=== PATIENT | female | born 1945 | race Caucasian/White ===

== ENCOUNTER 2017-06-28 10:42 | Day surgery (SDC) | payer MEDICARE, BC ==
[2017-06-27 10:04] LABS: BASOPHILS % (AUTO) 0.8 % (0-1); EOSINOPHILS # (AUTO) 0.1 X10'3 (0-0.9); EOSINOPHILS % (AUTO) 1.6 % (0-6); LYMPHOCYTES # (AUTO) 1.6 X10'3 (1.1-4.8); LYMPHOCYTES % (AUTO) 38.1 % (21-51); MEAN CORPUSCULAR HEMOGLOBIN 30.1 PG (27.0-31.0); MEAN CORPUSCULAR HGB CONC 33.2 % (33.0-36.5); MEAN CORPUSCULAR VOLUME 90.7 FL (78-98); MEAN PLATELET VOLUME 8.3 FL (7.4-10.4); MONOCYTES # (AUTO) 0.4 X10'3 (0-0.9); MONOCYTES % (AUTO) 10.6 % (2-12); NEUTROPHILS # (AUTO) 2.1 X10'3 (1.8-7.7); NEUTROPHILS % (AUTO) 48.9 % (42-75); PRE OP HEMATOCRIT 37.5 % (35.0-45.0); PRE OP HEMOGLOBIN 12.5 g/dL (12.0-16.0); PRE OP PLATELET COUNT 347 X10'3 (140-440); RED BLOOD COUNT 4.14 X10'6 (4.20-5.60); RED CELL DISTRIBUTION WIDTH 15.1 % (11.5-14.5)
[2017-06-27 10:10] LABS: CLARITY,URINE Clear (Clear); COLOR,URINE Yellow (Yellow); GLUCOSE, URINE Negative (Neg); KETONES,URINE Negative (Neg); LEUKOCYTE ESTERASE ,URINE Negative (Neg); NITRITES, URINE Negative (Neg); OCCULT BLOOD,URINE Negative (Neg); PROTEIN,URINE Negative (Neg); UROBILINOGEN,URINE 0.2 E.U/dL (0.2-1.0)
[2017-06-27 10:12] LABS: UA COLLECTION TYPE CLN CATCH MIDSTREAM
[2017-06-27 10:19] LABS: ALBUMIN 3.6 G/DL (3.4-5.0); ALBUMIN/GLOBULIN RATIO 0.9 (1.1-1.5); ALKALINE PHOSPHATASE 82 IU/L (46-116); BLOOD UREA NITROGEN 9 MG/DL (7-18); BUN/CREATININE RATIO 16.7 (6.6-38.0); CALCIUM 8.8 MG/DL (8.5-10.1); CHLORIDE 105 MMOL/L (99-107); CREATININE 0.54 MG/DL (0.40-0.90); PRE OP ALT 26 U/L (30-65); PRE OP ANION GAP 7 (8-16); PRE OP AST 26 U/L (10-37); PRE OP BILIRUB, TOTAL 0.3 MG/DL (0.0-1.0); PRE OP GLUCOSE 88 MG/DL (70-104); PRE OP POTASSIUM 3.9 MMOL/L (3.4-5.1); PRE OP SODIUM 142 MMOL/L (135-145); TOTAL CARBON DIOXIDE 30.4 MMOL/L (24-32); TOTAL PROTEIN 7.4 G/DL (6.4-8.2); eGFR > 90 ML/MIN
[~2017-06-28] VITALS: Ht 167.6 cm; Wt 56.2 kg
[2017-06-28] VITALS (11 sets, daily range): BP systolic 116–148; BP diastolic 43–80
[~2017-06-28 10:42] MED LIST: ASPI-12 PO; CALCIUM PO; CYAN-19 PO; ERGO500014 PO; LEVO25TA2 PO; MULT-1133 PO; VANCOMYCIN INJ 1000 MG in NORMAL SALINE 250ml IV.SOLN IV ONE; VENL-191 PO; ceFAZolin inj. 2,000 MG in dextrose 5%-water 100 ML IV ONE; famotidine 20mg tablet PO ONE; ringers solution, lacted 1,000 ML IV SCH
[2017-06-28] MEDS ORDERED: BUPIVAcaine/PF 2.5 mg/ml (0.25%) 30ml vial ONE (14:10)
[2017-06-28] MEDS ORDERED: MIDAZolam 1mg/ml 10ml vial ONE (14:19)
[2017-06-28] MEDS ORDERED: fentaNYL/PF 50MCG/1 ML 2ML syringe ONE (14:19)
[2017-06-28] MEDS ORDERED: LIDOcaine 2% (20mg/ml) 5ml vial ONE (14:31)
[2017-06-28] MEDS ORDERED: ringers solution, lacted 1,000 ML IV SCH (16:20)
[2017-06-28] MEDS ORDERED: morphine sulfate 8 MG/ML SYRINGE IV PRN (16:20)
[2017-06-28] MEDS ORDERED: proCHLORperazine 10 MG/2 ml inj IV PRN (16:20)
[2017-06-28] MEDS ORDERED: ondansetron/PF 4mg/2ml inj IV PRN (16:20)
[2017-06-28] MEDS ORDERED: meperidine/PF 25mg/ml syringe IV PRN ×3 (16:20)
[2017-06-28] MEDS ORDERED: meperidine/PF 25mg/ml syringe ONE (16:23)
[2017-06-28] MEDS: morphine sulfate 8 MG/ML SYRINGE IV PRN ×2 (16:32→16:42)
== END 2017-06-28 17:25 | disposition home or self-care (01) ==
LOC: PAS 10:42
PROVIDERS: ATTEND Orthopaedic Surgery
DX: T84.84XA Pain due to internal orthopedic prosthetic devices, implants and grafts, initial encounter (principal); M70.62 Trochanteric bursitis, left hip; E03.9 Hypothyroidism, unspecified; Z72.89 Other problems related to lifestyle; Z98.890 Other specified postprocedural states; Y83.8 Other surgical procedures as the cause of abnormal reaction of the patient, or of later complication, without mention of misadventure at the time of the procedure; Y92.9 Unspecified place or not applicable
CPT/HCPCS: 20680; 27062; 36415; 73502; 76001; 80053; 81003; 85025; 93005; A6258; A6449; J0690; J2001; J2175; J2250; J2270; J3010; J3370; J3490; J7060; J7120; A6250; A7000

== ENCOUNTER 2024-11-22 19:21 | Emergency (ER) | payer BC, MEDICARE ==
[~2024-11-22] VITALS: Ht 167.6 cm; Wt 48.2 kg
[~2024-11-22 19:21] MED LIST changes: -CYAN-19 PO; +CYAN100019 PO; -VANCOMYCIN INJ 1000 MG in NORMAL SALINE 250ml IV.SOLN IV ONE; -ceFAZolin inj. 2,000 MG in dextrose 5%-water 100 ML IV ONE; -famotidine 20mg tablet PO ONE; -ringers solution, lacted 1,000 ML IV SCH
[2024-11-22 20:00] VITALS: BP 131/72; PULSE 67; RESP 16; O2SAT 98
--- NOTE | 2024-11-22 21:12 | Physician Documentation ---
History of Present Illness ~ Chief Complaint: Laceration Stated Complaint: LEFT MIDDLE FINGER LAC Time Seen by MD: 21:34 OK to notify your PCP?: Yes Primary Medical Doctor: FLOR Source: patient Mode of Arrival: POV Exam Limitations: no limitations HPI Hazel is a pleasant 79-year-old female presenting to our emergency department with left middle finger pain and tiny superficial laceration at the tip of her finger after using pruning khang earlier today. She reports cleaning it out really well and then soaking her finger and isopropyl alcohol. She does not recall when her last tetanus vaccine was but states it was years ago. She has it covered with a Band-Aid and it is no longer bleeding. She is not taking any medication for pain relief [id number]. She has good range of motion in th e finger. She is requesting a tetanus vaccine. Tetanus Within 5 Years: No Medication Reconciliation Allergies: Coded Allergies: Sulfa (Sulfonamide Antibiotics) (Verified Allergy, Unknown, 07/26/14) milk (Verified Allergy, Unknown, 07/26/14) Scheduled Aspirin/Calcium Carbonate/Mag (Aspirin Buffered 325 Mg Tab), 1 TAB PO DAILY, (Reported) Cyanocobalamin (Vitamin B-12) (Vitamin B-12), 6 TABLET PO DAILY, (Reported) Ergocalciferol* (Vitamin D*), 1,000 UNIT PO DAILY, (Reported) Multivits-Min/Iron/FA/Lutein (Centrum Silver Women Tablet), 1 TAB PO DAILY, (Reported) Venlafaxine Hcl* (Effexor*), 2 TAB PO DAILY, (Reported) [Calcium], 1,200 MG PO DAILY, (Reported) levothyroxine sodium* (Synthroid*), 125 MCG PO DAILY, (Reported) Review of Systems All Other Systems at this time: Reviewed and Negative Physical Exam Vital Signs: RN Vital Signs have been reviewed: Yes, Temperature: 98.5, Source: Temporal, Heart Rate: 67, Respiratory Rate: 16, BP: 131/72, Pulse Oximetry: 98, Weight: 48.200 Oxygen Flow Rate: 0 Pulse Oximetry Reflects: adequate oxygenation Physical Exam General: Alert, no apparent distress. HEENT: PERRL, EOMI, no injection, moist mucous membranes. Neck: Full range of motion. Respiratory: Lungs clear, no respiratory distress. Chest: No accessory muscle use. Cardiovascular: Regular rate and rhythm, no murmurs. Gastrointestinal: Soft, nontender, nondistended. Bowels sounds present. Extremities: Normal range of motion, no deformity. Neurologic: Oriented x4. Psychiatric: Normal mood and affect. Skin: Normal color, warm and dry. No edema, no ecchymosis. Tiny closed laceration to the tip of the left middle finger approximately 5 mm in length, no erythema or warmth to finger. Progress Results/Orders Reviewed/noted all lab results: Yes Results/Orders Completed Orders - NATHALIA EDWARDS DRY CURER Tetanus/Pertuss/Diph Acell/Pf (Boostrix (11/22/24 21:00) Medications Received in ER Medications (Trade) Dose Ordered Sig/Lars Route PRN Reason Start Time Stop Time Status Last Admin Dose Admin (Boostrix vaccine syringe) 0.5 ml ONCE ONCE IMVAC 11/22/24 21:00 11/22/24 21:01 DC 11/22/24 21:16 0.5 ML Vital Signs 11/22/24 11/22/24 20:00 21:19 Temp 98.5 98.5 Pulse 67 Resp 16 B/P (MAP) 131/72 Pulse Ox 98 O2 Flow Rate 0 Medical Decision Making Findings She is a 79-year-old female with a superficial soft tissue injury to her left middle finger after using pruning khang. She cleaned out the wound well prior to arrival and is requesting a tetanus vaccine. On exam, full range of motion in the finger and the wound is closed, edges are well approximated with no signs or symptoms of infection. Her wound does not require any closure intervention such as sutures or skin glue. She was given a tetanus vaccine while here in the department. She was discharged home with wound care instructions to keep finger clean and dry and to monitor for signs or symptoms of infection such as increased pain, redness, discharge, fevers, or altered mental status as she may need to return for any antibiotic. She should follow up with her primary care provider in the next 3 days and return back here for any new or worsening symptoms. She agrees with this plan. Differential Dx:Considerations: Include: Abrasion, Fracture, Hematoma, Neurovascular injury, Retained foreign body Departure Disposition: 01 HOME / SELF CARE / HOMELESS Impression: Primary Impression: Laceration Condition: Stable Discharge Instructions: Laceration Care, Adult, [id number] Additional Instructions: You have received your tetanus vaccine while here in the emergency department. Please return back for any new or worsening symptoms such as spreading redness, fever, altered level of consciousness or discharge from the area. Please keep wound clean and dry. Follow up with her primary care provider in the next 3 days. Referrals: NO PRIMARY CARE PROVIDER (PCP) Education Educated: Patient Educated regarding: diagnosis, treatment, prognosis, need for follow up Signature Scribe Signature: . Attestation: Scribed for Nathalia Edwards Location Analyst by Nathalia Gupta NP . 11/23/24 01:50 NATHALIA EDWARDS DRY CURER November 22, 2024 21:12
[2024-11-22] MEDS: TETanus/Pertussis (Acell)/Diphther VAC/PF (Tdap-Adult) 0.5ml syringe IMVAC ONE (21:16)
[2024-11-22 21:19] VITALS: TEMP 98.5
== END 2024-11-22 21:22 | disposition home or self-care (01) ==
LOC: ER 19:22
DX: S61.213A Laceration without foreign body of left middle finger without damage to nail, initial encounter (principal); Z88.2 Allergy status to sulfonamides; Z91.011 Allergy to milk products; Z79.82 Long term (current) use of aspirin; Z79.899 Other long term (current) drug therapy; X58.XXXA Exposure to other specified factors, initial encounter; Y93.89 Activity, other specified; Y92.89 Other specified places as the place of occurrence of the external cause; Y99.8 Other external cause status
CPT/HCPCS: 90715; 99283; G0008; 90471

== ENCOUNTER 2024-12-01 11:39 | Outpatient (CLI) | payer MEDICARE ==
--- NOTE | 2024-12-01 14:31 | RADIOLOGY REPORT ---
EXAM: DI LUMBAR SPINE LIMITED INDICATION: LOW BACK PAIN; RIGHT HIP PAIN TECHNIQUE: 3 views of the lumbosacral spine COMPARISON: None FINDINGS/IMPRESSION: Trace retrolisthesis L2 over L3 and L1 over L2. Vascular calcifications. Relative bony foraminal narr owing at L5-S1. 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
--- NOTE | 2024-12-01 14:36 | RADIOLOGY REPORT ---
EXAM: DI HIP UNILATERAL 2 VIEWS CLINICAL INDICATION: LOW BACK PAIN; RIGHT HIP PAIN TECHNIQUE: DI HIP UNILATERAL 2 VIEWS Comparison: None FINDINGS/IMPRESSION: There is no evidence of acute fracture or dislocation. Moderate right hip osteoarthritis. The alignment is anatomical. There is no radiopaque foreign body.
== END 2024-12-01 23:59 | disposition home or self-care (01) ==
LOC: RAD 11:39
PROVIDERS: ATTEND Family Medicine
DX: M16.11 Unilateral primary osteoarthritis, right hip (principal); M25.551 Pain in right hip; M54.50 Low back pain, unspecified
CPT/HCPCS: 72100; 73502